=== PATIENT | female | born 2000 | race Caucasian/White ===

== ENCOUNTER 2022-09-17 12:51 | Outpatient (CLI) | payer BC, OTHER ==
[2022-09-17 15:58] VITALS: BP 120/67; PULSE 94; RESP 16; TEMP 98.2
--- NOTE | 2022-11-05 07:29 | P.MSEPDOC ---
Presenting Problems - Arrival Data Date of Arrival on Unit: 09/17/22 Time of Arrival on Unit: 12:51 Mode of Transport: Ambulatory - Complaint OB-Reason for Admission/Chief Complaint: Other Comment: sent from office for monitoring, had TRACY 4.1 in office Medical History - Information : 2 Para: 0 Term: 0 : 0 Abortions: Spontaneous or Elective: 0 Number of Living Children: 0 - Gestational Age Gestational Age by FERN (wks/days): 40 Weeks and 4 Days Review of Systems - Review of Systems Constitutional: No problems Breast: No problems ENT: No problems Cardiovascular: No problems Respiratory: No problems Gastrointestinal: No problems Genitourinary: No problems Musculoskeletal: No problems Neurological: No problems Skin: No problems Vital Signs - Temperature Temperature: 98.2 F Temperature Source: Temporal Artery Scan - Pulse Right Sitting Pulse Rate: 94 Pulse Assessment Method: Automatic Cuff - Respirations Respiratory Rate: 16 Oxygen Delivery Method: Room Air - Blood Pressure Right Arm Blood Pressure: 120/67 Blood Pressure Mean: 84 Blood Pressure Source: Automatic Cuff Medical Screen Scoring - Cervical Exam Membranes: Intact - Assessment - Baby A Baseline FHR: 150 Heart Rate - NICHD Category: Category I (Normal) NST: Reactive Physician Notification - Physician Notified Physician Notified Date: 09/17/22 Physician Notified Time: 14:45 Physician: Quin Walker Order Received: Yes (d/c home) Maternal Triage Index - Non-Urgent/Priority 4 Non-Urgent Priority 4: Yes Criteria Met for Priority 4: reactive nst, negative amnisure Disposition - Disposition OB Disposition: Discharge to home, Written follow up instructions reviewed Discharge Date: 09/17/22 Discharge Time: 15:00 I agree with the RN Medical Screening Exam: Yes Case reviewed; plan agreed upon as documented in EMR&OBIX.: Yes Diagnosis: OLIGOHYDRAMNIOS, THIRD TRIMESTER, FETUS 1
== END 2022-09-17 15:00 | disposition home or self-care (01) ==
LOC: FBPOP 12:51
PROVIDERS: ATTEND Obstetrics & Gynecology
DX: O26.893 Other specified pregnancy related conditions, third trimester (principal); O41.03X1 Oligohydramnios, third trimester, fetus 1; Z3A.40 40 weeks gestation of pregnancy
CPT/HCPCS: 59025; 84112; G0463; 99213

== ENCOUNTER 2022-09-19 11:22 | Inpatient (IN) | payer BC, OTHER ==
[2022-09-19] MEDS ORDERED: miSOPROStoL 200 MCG TAB PO PRN (12:30)
[2022-09-19] MEDS ORDERED: OXYTOCIN 10 UNIT/ML 1 ML VIAL IM PRN (12:30)
[2022-09-19] MEDS ORDERED: TRANEXAMIC 1,000 MG/100ML-NACL 1,000 MG in EMPTY BAG 1 BAG IV PRN (12:30)
[2022-09-19] MEDS ORDERED: METHYLERGONOVINE 0.2 MG/ML 1 ML AMP IM PRN (12:30)
[2022-09-19] MEDS ORDERED: CITRIC ACID-SODIUM CITRATE 15 ML CUP PO ONE (12:30)
[2022-09-19] MEDS ORDERED: OXYTOCIN 30 UNITS/500 ML NS 30 UNIT in SALINE 1 500ML.BAG IV SCH (12:30)
[2022-09-19] MEDS ORDERED: CARBOPROST TROMETHAMINE 250 MCG/ML 1 ML AMP IM PRN (12:30)
--- NOTE | 2022-09-19 12:42 | US ---
EXAMINATION TYPE: US OB limited DATE OF EXAM: 09/19/2022 COMPARISON: NONE CLINICAL INDICATION: Female, 22 years old with history of TRACY; EXAM PERFORMED: Transabdominal (TA) GESTATIONAL AGE / DATING Physician Established: (40 weeks/6 days) EDC: 09/13/2022 No growth performed on today?s study per ordering physician SURVEY TRACY: 2.3 cm Oligohydraminos PRESENTATION: Vertex HEART RATE: 140 bpm RHYTHM: Normal Verbal results given to floor nurse at time of exam. IMPRESSION: Oligohydramnios.
[2022-09-19] MEDS: LACTATED RINGERS 1,000 ML IV SCH (13:00)
[2022-09-19 13:14] LABS: Basophils % (A) 0 %; Eosinophils # (A) 0.1 k/uL (0-0.7); Eosinophils % (A) 1 %; HCT 33.4 % (34.0-46.0); HGB 12.1 gm/dL (11.4-16.0); Lymphocytes # (A) 0.9 k/uL (1.0-4.8); Lymphocytes % (A) 13 %; MCH 32.7 pg (25.0-35.0); MCHC 36.3 g/dL (31.0-37.0); Mean Platelet Volume 10.5; Monocytes # (A) 0.4 k/uL (0-1.0); Monocytes % (A) 6 %; Neutrophils # (A) 5.4 k/uL (1.3-7.7); Neutrophils % (A) 78 %; Platelet Count 130 k/uL (150-450); RBC 3.71 m/uL (3.80-5.40); RDW 13.2 % (11.5-15.5); WBC 6.9 k/uL (3.8-10.6)
--- NOTE | 2022-09-19 15:59 | P.HPOB ---
History of Present Illness H&P Date: 09/19/22 Chief Complaint: oligohydraminos 22 year old presemts at 40 weeks 6 days with oligohydramnios. TRACY today is 2.2cm though heart tones are category 1. Her cervix is closed and uneffaced. Review of Systems All systems: negative Constitutional: Denies chills, Denies fever Eyes: denies blurred vision, denies pain Ears, nose, mouth and throat: Denies headache, Denies sore throat Cardiovascular: Denies chest pain, Denies shortness of breath Respiratory: Denies cough Gastrointestinal: Denies abdominal pain, Denies diarrhea, Denies nausea, Denies vomiting Genitourinary: Denies dysuria, Denies hematuria Musculoskeletal: Denies myalgias Integumentary: Denies pruritus, Denies rash Neurological: Denies numbness, Denies weakness Psychiatric: Denies anxiety, Denies depression Endocrine: Denies fatigue, Denies weight change Past Medical History Past Medical History: No Reported History History of Any Multi-Drug Resistant Organisms: None Reported Additional Past Surgical History / Comment(s): Eye surgery x2 in childhood Past Anesthesia/Blood Transfusion Reactions: No Reported Reaction Past Psychological History: No Psychological Hx Reported Smoking Status: Never smoker Past Alcohol Use History: None Reported Past Drug Use History: None Reported - Past Family History Mother Family Medical History: No Reported History Medications and Allergies Home Medications Medication Instructions Recorded Confirmed Type Vit No.179/Iron/Folic 1 tab PO DAILY 09/17/22 09/19/22 History [ Tablet] Allergies Allergy/AdvReac Type Severity Reaction Status Date / Time No Known Allergies Allergy Verified 09/17/22 13:34 Exam Osteopathic Statement: *. No significant issues noted on an osteopathic structural exam other than those noted in the History and Physical/Consult. Vital Signs Temp Pulse Resp BP Pulse Ox 09/19/22 11:38 97.9 F 104 H 18 114/61 98 Intake and Output 09/19/22 09/19/22 09/19/22 06:59 14:59 22:59 Other: # Voids 1 Weight 100.244 kg Heart: Regular rate and rhythm Lungs: Clear to auscultation bilaterally Abdomen: Soft, nontender Extremities: Negative Homans sign Results Result Diagrams: 09/19/22 12:57 Abnormal Lab Results - Last 24 Hours (Table) 09/19/22 Range/Units 12:57 RBC 3.71 L (3.80-5.40) m/uL Hct 33.4 L (34.0-46.0) % Plt Count 130 L (150-450) k/uL Lymphocytes # 0.9 L (1.0-4.8) k/uL Assessment and Plan (1) Oligohydramnios antepartum Current Visit: Yes Status: Acute Code(s): O41.00X0 - OLIGOHYDRAMNIOS, UNSP TRIMESTER, NOT APPLICABLE OR UNSP SNOMED Code(s): 115642995 (2) Postmaturity , 40-42 weeks gestation Current Visit: Yes Status: Acute Code(s): O48.0 - POST-TERM SNOMED Code(s): 05449905398288 (3) Macrosomia Current Visit: Yes Status: Acute Code(s): P08.0 - EXCEPTIONALLY LARGE BABY SNOMED Code(s): 74533113 Plan: 1. primary low transverse
[2022-09-19] MEDS ORDERED: DEXAMETHASONE SOD PHOSPHATE 4 MG/ML 1 ML VIAL ONE (16:29)
[2022-09-19] MEDS ORDERED: MORPHINE SULFATE (PF) 0.3 MG/0.3 ML SYR ONE (16:29)
[2022-09-19] MEDS ORDERED: KETOROLAC 15 MG/ML 1 ML VIAL ONE (16:29)
[2022-09-19] MEDS ORDERED: ONDANSETRON 4 MG/2 ML VIAL ONE (16:29)
[2022-09-19] MEDS ORDERED: diphenhydrAMINE 50 MG/ML 1 ML VIAL IVP PRN ×3 (17:15→20:05)
[2022-09-19] MEDS ORDERED: HYDROmorphone 0.5 MG/0.5 ML SYRINGE IVP PRN (17:15)
[2022-09-19] MEDS ORDERED: ONDANSETRON 4 MG/2 ML VIAL IVP PRN ×2 (17:15→20:05)
[2022-09-19] MEDS ORDERED: NALOXONE 0.4 MG/ML 1 ML VIAL IV PRN ×2 (17:15→20:05)
[2022-09-19] MEDS ORDERED: ZOLPIDEM 5 MG TAB PO PRN (20:05)
[2022-09-19] MEDS ORDERED: diphenhydrAMINE 25 MG CAP PO PRN (20:05)
[2022-09-19] MEDS ORDERED: METOCLOPRAMIDE 5 MG/ML 2 ML VIAL IVP PRN (20:05)
[2022-09-19] MEDS ORDERED: diphenhydrAMINE 50 MG CAP PO PRN (20:05)
[2022-09-19] MEDS: ACETAMINOPHEN TAB 500 MG TAB PO SCH (20:53)
[2022-09-19] MEDS: KETOROLAC 15 MG/ML 1 ML VIAL IVP PRN (23:39)
[2022-09-20] MEDS: LACTATED RINGERS 1,000 ML IV SCH ×6 (00:01→20:01)
[2022-09-20] MEDS: IBUPROFEN 600 MG TAB PO SCH ×4 (00:03→23:41)
[2022-09-20] MEDS: ACETAMINOPHEN TAB 500 MG TAB PO SCH ×4 (05:37→20:57)
[2022-09-20 07:06] LABS: Basophils % (A) 0 %; Eosinophils % (A) 0 %; HGB 10.1 gm/dL (11.4-16.0); Lymphocytes # (A) 1.1 k/uL (1.0-4.8); Lymphocytes % (A) 10 %; MCH 32.1 pg (25.0-35.0); MCHC 34.9 g/dL (31.0-37.0); MCV 91.9 fL (80.0-100.0); Mean Platelet Volume 10.8; Monocytes # (A) 0.7 k/uL (0-1.0); Monocytes % (A) 6 %; Neutrophils # (A) 9.1 k/uL (1.3-7.7); Neutrophils % (A) 83 %; Platelet Count 133 k/uL (150-450); RBC 3.15 m/uL (3.80-5.40); RDW 13.4 % (11.5-15.5)
[2022-09-20] MEDS: KETOROLAC 15 MG/ML 1 ML VIAL IVP PRN (07:59)
[2022-09-20] MEDS: SENNOSIDES-DOCUSATE SODIUM 1 EACH TAB PO SCH ×2 (08:00→20:01)
--- NOTE | 2022-09-20 09:56 | P.PN ---
Progress Note - Text Progress Note Date: 09/20/22 Postoperative day 1 status post section under spinal anesthesia, and i ntrathecal morphine given for postoperative analgesia, patient doing well, there is no anesthesia related complications, Patient had no headache, vital signs stable , Assessment and plan= postop day 1 status post , doing well there is no anesthesia related complication.
--- NOTE | 2022-09-20 12:46 | P.PNOBGPC ---
Subjective - Subjective Principal diagnosis: Status post primary section postoperative day #1 Interval history: Patient is doing well. She has ambulated. She is passing some flatus but no bowel movement yet. Her catheter was removed earlier today and she has not been able to urinate yet. She has had a straight cathed 1 time. Bleeding has been minimal. She is breast-feeding well. Patient reports: Reports appetite normal, Reports pain well controlled, Reports ambulating normally, Denies voiding normally [place]: doing well, nursing well Objective - Vital Signs Latest vital signs: Vital Signs Temp Pulse Resp BP Pulse Ox 09/20/22 08:00 98.1 F 78 15 106/64 98 09/20/22 04:00 99.2 F 85 16 105/62 96 09/19/22 23:56 98.6 F 89 16 123/67 96 09/19/22 19:31 76 16 119/74 97 09/19/22 18:40 96.9 F L 62 18 111/59 99 09/19/22 18:15 98.3 F 70 18 121/61 98 09/19/22 18:10 98.3 F 70 18 121/61 98 09/19/22 17:55 68 18 122/60 99 09/19/22 17:40 96.4 F L 71 18 116/55 99 09/19/22 17:25 98.2 F 67 18 130/58 100 09/19/22 17:10 97.0 F L 80 18 112/68 100 Intake and Output 09/19/22 09/20/22 09/20/22 22:59 06:59 14:59 Output Total 1012 2000 1100 Balance -1012 -1999 -1100 Output: Urine 150 2000 1100 Straight 1100 Uretheral (Ferrara) 1200 Output, Quantitative 862 Blood Loss - Exam Extremities: Present: normal. Absent: tenderness, edema Abdomen: Present: normal appearance, soft (Positive bowel sounds 4). Absent: distention, tenderness Incision: Present: normal, dry, intact. Absent: erythematous Uterus: Present: normal, firm. Absent: tenderness - Labs Labs: Abnormal Lab Results - Last 24 Hours (Table) 09/19/22 09/20/22 Range/Units 12:57 06:18 WBC 11.0 H (3.8-10.6) k/uL RBC 3.71 L 3.15 L (3.80-5.40) m/uL Hgb 10.1 L (11.4-16.0) gm/dL Hct 33.4 L 29.0 L (34.0-46.0) % Plt Count 130 L 133 L (150-450) k/uL Neutrophils # 9.1 H (1.3-7.7) k/uL Lymphocytes # 0.9 L (1.0-4.8) k/uL Assessment and Plan Assessment: Status post primary low transverse section postoperative day #1 Plan: Continue with postoperative and care today. We'll continue to observe for urination and straight cath as needed. Will switch to oral pain medications today. Encouraged ambulation.
[2022-09-20 23:44] VITALS: PULSE 78; TEMP 98.2
[2022-09-21] MEDS: IBUPROFEN 600 MG TAB PO SCH ×3 (02:07→12:24)
[2022-09-21] MEDS: ACETAMINOPHEN TAB 500 MG TAB PO SCH ×2 (04:08→10:26)
[2022-09-21] MEDS: SENNOSIDES-DOCUSATE SODIUM 1 EACH TAB PO SCH (08:46)
[2022-09-21 09:17] VITALS: BP 113/74; RESP 18
--- NOTE | 2022-09-21 12:48 | P.DS ---
Providers Date of admission: 09/19/22 12:21 Expected date of discharge: 09/21/22 Attending physician: Quin Walker Primary care physician: Stated None Hospital Course: This is a 22-year-old female that a 2 para 0 at 40-6/7 weeks who presented for primary section due to macrosomia, postdates, and oligohydramnios. She underwent a primary low transverse section on 09/19/2022 and delivered a viable male with scores of 8 at 1 minute and 9 at 5 minutes and weight of 9 lbs. 8 oz. Her postoperative and course has been uncomplicated. She is passing flatus and bowel movement. She is urinating without difficulty. Pain is been fairly well- controlled. Baby is breast-feeding. Vital signs are stable. Abdomen is soft with positive bowel sounds 4. Incision is clean dry and intact with balbir in place. Extremities show negative Homans. Impression is status post primary low transverse section postoperative day #2. Plan is to discharge home today. Routine postoperative and instructions are given. She is advised to follow up with Dr. Walker in 1 week in the office for a postoperative check and in 6 weeks for a check. She will be given a prescription for ibuprofen. She is advised to call the office if she has any further questions or concerns prior to her appointment times. Procedures: Primary low transverse section on 09/19/2022 with delivery of a viable male Patient Condition at Discharge: Stable Plan - Discharge Summary New Discharge Prescriptions: New Ibuprofen [Motrin] 600 mg PO Q6H #60 tab Acetaminophen Tab [Tylenol] 1,000 mg PO Q6H tab Continue Vit No.179/Iron/Folic [ Tablet] 1 tab PO DAILY Discharge Medication List Vit No.179/Iron/Folic [ Tablet] 1 tab PO DAILY 09/17/22 [History] Acetaminophen Tab [Tylenol] 1,000 mg PO Q6H tab 09/21/22 [Rx] Ibuprofen [Motrin] 600 mg PO Q6H #60 tab 09/21/22 [Rx] Follow up Appointment(s)/Referral(s): Quin Walker DO [Doctor of Osteopathic Medicine] - 1 Week Activity/Diet/Wound Care/Special Instructions: Instructions 1. Do not begin any exercise program for 3 weeks. 2. Do not resume sexual relations for 3 weeks or longer if uncomfortable. 3. You may take tub baths or showers at any time. 4. You may use tampons if desired after 3 weeks. 5. Keep the area of episiotomy (stitches) clean and dry. 6. If you are not nursing, wear a good fitting, supportive bra during the day and limit fluid intake for at least 1 week to prevent breast engorgement. 7. Call the office, [phone], within the next week to make appointment for your 6 week checkup if it has not already been made. 8. Report any of the following occurrences to the doctor promptly: a. Heavy, excessive bleeding b. Chills, fever c. Burning or frequency of urination d. Pain or redness and breasts if nursing e. Increasing pain or swelling in episiotomy (stitches). In addition to the above instructions, the following additional should be followed: 1. No heavy lifting or straining (exercising) until after 6 week checkup. 2. Keep abdominal incision clean and dry: You may wear a dressing if more comfortable. 3. Make office appointment for 10 days after going home or as instructed by her doctor. Discharge Disposition: HOME SELF-CARE
--- NOTE | 2022-10-05 09:11 | P.OP ---
Date of Procedure: 09/19/22 Preoperative Diagnosis: 1. at 40 weeks 6 days 2. oligohydramnios 3. macrosomia Postoperative Diagnosis: same Procedure(s) Performed: Primary low transverse Anesthesia: spinal Surgeon: Quin Walker Estimated Blood Loss (ml): 300 IV fluids (ml): 600 Urine output (ml): 100 Pathology: none sent Condition: stable Disposition: floor Description of Procedure: Patient was taken to the operating room where spinal anesthesia was found be adequate. She was prepped and draped in normal sterile fashion in dorsal supine position with a leftward tilt. Pfannenstiel skin incision was made the scalpel and carried through to the underlying layer of fascia with the scalpel. Fascia was incised in midline and carried bilaterally with the Ewing scissors. The superior aspect of the fascial incision was grasped with Fortunato clamps elevated and the underlying rectus muscles dissected off with the Ewing's. Attention was then turned to inferior aspect of same incision which in a similar fashion was grasped tented up and the underlying rectus muscles dissected off with the Ewing's. The rectus muscles were the midline and the peritoneum was identified tented up and entered sharply with the scalpel. The incision was extended superiorly and inferiorly with good visualization of the bladder. The bladder blade was inserted and the vesicouterine peritoneum was incised the Metzenbaums then carried bilaterally and bladder flap created digitally. A low transverse incision was then made on the uterus with the scalpel. This was carried bilaterally and digital manner. 's head delivered atraumatically, nose and mouth bulb suctioned, cord clamped and cut, handed off to waiting nurses. Apgars 9,9, weight pending. Placenta delivered manually, intact with three-vessel cord. The uterus is exteriorized and cleared of all clots and debris. The uterine incision was closed with 0 Vicryl in a running locked fashion. Second layer of the same sutures used in imbricating fashion to obtain excellent hemostasis. Bladder flap was then reapproximated using 2-0 Vicryl in a running fashion. Both ovaries and tubes appeared normal. The uterus was placed back into the abdomen. The peritoneum was reapproximated using 2-0 Vicryl in a running fashion. The muscles were reapproximated using 2- 0 Vicryl in interrupted fashion. The fascia was reapproximated using 0 Vicryl in a running fashion. The subcutaneous tissues closed with 3-0 Vicryl running fashion. The skin was closed balbir. Patient tolerated the procedure well, sponge and instrument counts were correct times 2 and she was taken to the recovery room in stable condition.
== END 2022-09-21 13:21 | disposition home or self-care (01) | DRG 787 ==
LOC: FBPOP 11:22 → 4FBP 12:21
PROVIDERS: ADMIT Obstetrics & Gynecology; ATTEND Obstetrics & Gynecology
PROC: 10D00Z1 Extraction of Products of Conception, Low, Open Approach (ICD-10-PCS; principal; 2022-09-19 17:00)
DX: O48.0 Post-term pregnancy (principal); O41.03X0 Oligohydramnios, third trimester, not applicable or unspecified; O36.63X0 Maternal care for excessive fetal growth, third trimester, not applicable or unspecified; Z3A.40 40 weeks gestation of pregnancy; Z37.0 Single live birth
CPT/HCPCS: 59025; 76815; 85025; 86850; 86900; 86901; 99213

== ENCOUNTER 2024-09-16 12:38 | Outpatient (CLI) | payer OTHER ==
[2024-09-16 16:06] VITALS: BP 113/58; PULSE 76; RESP 18; TEMP 99.1
--- NOTE | 2024-09-18 09:34 | P.MSEPDOC ---
Presenting Problems - Arrival Data Date of Arrival on Unit: 09/16/24 Time of Arrival on Unit: 12:39 Mode of Transport: Ambulatory - Complaint OB-Reason for Admission/Chief Complaint: Possible Onset of Labor Comment: Pt complains of contractions that started today. States that she is scheduled for a C/S next week. Medical History - Information : 2 Para: 1 Number of Living Children: 1 - Gestational Age Gestational Age by FERN (wks/days): 38 Weeks and 3 Days - History Complications: Prior Review of Systems - Review of Systems Constitutional: No problems Breast: No problems ENT: No problems Cardiovascular: No problems Respiratory: No problems Gastrointestinal: No problems Genitourinary: No problems Musculoskeletal: No problems Neurological: No problems Skin: No problems Vital Signs - Temperature Temperature: 99.1 F Temperature Source: Temporal Artery Scan - Pulse Right Sitting Brachial Pulse Rate: 76 Pulse Assessment Method: Pulse Oximetry - Respirations Respiratory Rate: 18 Oxygen Delivery Method: Room Air O2 Sat by Pulse Oximetry: 98 - Blood Pressure Right Arm Sitting Blood Pressure: 113/58 Blood Pressure Mean: 76 Blood Pressure Source: Automatic Cuff Medical Screen Scoring - Cervical Exam Dilation (cm): 0 - Assessment - Baby A Baseline FHR: 140 Heart Rate - NICHD Category: Category I (Normal) NST: Reactive Physician Notification - Physician Notified Physician Notified Date: 09/16/24 Physician Notified Time: 13:00 Physician: Satnam Johnston Order Received: Yes - Notification Comment Comment: Pt to receive IV fluids and may be d/c home to follow up for c/s Maternal Triage Index - Prompt/Priority 3 Prompt Priority 3: Yes Criteria Met for Priority 3: Contractions Disposition - Disposition OB Disposition: Discharge to home, Written follow up instructions reviewed Discharge Date: 09/16/24 Discharge Time: 15:55 I agree with the RN Medical Screening Exam: Yes Physician's MSE Comment: I have neither seen nor examined the patient. Case reviewed; plan agreed upon as documented in EMR&OBIX.: Yes Diagnosis: RELATED CONDITIONS, UNSPECIFIED, THIRD TRIMESTER
== END 2024-09-16 15:55 | disposition home or self-care (01) ==
LOC: FBPOP 12:38
PROVIDERS: ATTEND Obstetrics & Gynecology
DX: O26.893 Other specified pregnancy related conditions, third trimester (principal); Z3A.38 38 weeks gestation of pregnancy
CPT/HCPCS: 59025; 96360; G0463; 99214

== ENCOUNTER 2024-09-21 09:27 | Inpatient (IN) | payer OTHER ==
[2024-09-21] MEDS ORDERED: METHYLERGONOVINE 0.2 MG/ML 1 ML AMP IM PRN (10:19)
[2024-09-21] MEDS ORDERED: TRANEXAMIC 1,000 MG/100ML-NACL 1,000 MG in EMPTY BAG 1 BAG IV PRN (10:19)
[2024-09-21] MEDS ORDERED: OXYTOCIN 10 UNIT/ML 1 ML VIAL IM PRN (10:19)
[2024-09-21] MEDS ORDERED: CARBOPROST TROMETHAMINE 250 MCG/ML 1 ML AMP IM PRN (10:19)
[2024-09-21] MEDS ORDERED: OXYTOCIN 30 UNITS/500 ML NS 30 UNIT in SALINE 1 500ML.BAG IV SCH (10:30)
[2024-09-21] MEDS: LACTATED RINGERS 1,000 ML IV SCH ×2 (10:30→13:30)
[2024-09-21 11:20] LABS: Basophils # (A) 0.01 10*3/uL (0.00-0.10); Basophils % (A) 0.2 %; Eosinophils # (A) 0.04 10*3/uL (0.04-0.35); Eosinophils % (A) 0.6 %; HCT 32.5 % (37.2-46.3); HGB 11.0 g/dL (12.0-15.0); Immature Platelet Fraction 8.1 % (1.1-6.1); Lymphocytes # (A) 1.13 10*3/uL (0.90-5.00); Lymphocytes % (A) 17.1 %; MCH 30.2 pg (27.0-32.0); MCHC 33.8 g/dL (32.0-37.0); MCV 89.3 fL (80.0-97.0); Monocytes # (A) 0.46 10*3/uL (0.20-1.00); Monocytes % (A) 7.0 %; Neutrophils # (A) 4.91 10*3/uL (1.80-7.70); Neutrophils % (A) 74.3 %; Platelet Count 143 10*3/uL (140-440); RBC 3.64 10*6/uL (4.10-5.20); RDW 13.2 % (11.5-14.5); WBC 6.60 10*3/uL (4.50-10.00)
[2024-09-21] MEDS: CITRIC ACID-SODIUM CITRATE 15 ML CUP PO ONE (12:00)
[2024-09-21] MEDS ORDERED: KETOROLAC 15 MG/ML 1 ML VIAL ONE (12:14)
[2024-09-21] MEDS ORDERED: MORPHINE SULFATE (PF) 0.3 MG/0.3 ML SYR ONE (12:14)
[2024-09-21] MEDS ORDERED: NALBUPHINE (ANES) 10 MG/ML - 1 ML AMP ONE (12:14)
[2024-09-21] MEDS ORDERED: fentaNYL (PF) 50 MCG/ML 2 ML AMP ONE (12:14)
[2024-09-21] MEDS ORDERED: OXYTOCIN 30 UNITS/500 ML NS BAG IV ONE (12:14)
[2024-09-21] MEDS ORDERED: ONDANSETRON 4 MG/2 ML VIAL ONE (12:14)
[2024-09-21] MEDS ORDERED: DEXAMETHASONE SOD PHOSPHATE 4 MG/ML 1 ML VIAL ONE (12:14)
[2024-09-21] MEDS ORDERED: NALOXONE 0.4 MG/ML 1 ML VIAL IV PRN (13:23)
[2024-09-21] MEDS ORDERED: SIMETHICONE 80 MG CHEWABLE PO PRN (13:23)
[2024-09-21] MEDS ORDERED: ONDANSETRON 4 MG/2 ML VIAL IVP PRN (13:23)
[2024-09-21] MEDS ORDERED: ZOLPIDEM 5 MG TAB PO PRN (13:23)
[2024-09-21] MEDS ORDERED: diphenhydrAMINE 50 MG/ML 1 ML VIAL IVP PRN ×2 (13:23)
[2024-09-21] MEDS ORDERED: LANOLIN CREAM 1 GM TUBE TOPICAL PRN (13:23)
[2024-09-21] MEDS ORDERED: METOCLOPRAMIDE 5 MG/ML 2 ML VIAL IVP PRN (13:23)
[2024-09-21] MEDS ORDERED: diphenhydrAMINE 25 MG CAP PO PRN (13:23)
--- NOTE | 2024-09-21 13:30 | P.HPOB ---
History of Present Illness H&P Date: 09/21/24 Chief Complaint: 39+ weeks, previous section, undesired fertility, ovarian mass The patient is a 24-year-old 3 para 1-0-1-1 admitted at 39 and 1 sevenths weeks as established by 10-week ultrasound. She is admitted for repeat low-transverse section with intraoperative bilateral salpingectomy. On labor delivery, all signs are reassuring with a category 1 heart rate tracing. She additionally carries a history of a known right ovarian mass which was approximately 5 cm in her last and has grown during this to approximately 15 cm in size. The intention is to excise it during this procedure. Her was otherwise essentially uncomplicated though she had an episode of dysrhythmia for which she had a maternal- medicine consultation which was reassuring and required no further intervention. Group B strep status is negative. Obstetrical history: 3 para 1-0-1-1 with 1 previous term section without complications. Current statistics are listed in the history of present illness. EDC of 09/27/2024 was established by 10-week ultrasound. Laboratory workup demonstrates a blood type of A+ with a negative antibody screen. Rubella status is immune. The remainder of the laboratory workup is within normal limits. 1 hour Glucola was normal and group B strep status is negative. Gynecologic history: Unremarkable with no history of any infections to include STDs. Review of Systems Review of systems is confined to history of present illness. Past Medical History Past Medical History: No Reported History History of Any Multi-Drug Resistant Organisms: None Reported Past Surgical History: Section Additional Past Surgical History / Comment(s): Eye surgery x2 in childhood Past Anesthesia/Blood Transfusion Reactions: No Reported Reaction Past Psychological History: No Psychological Hx Reported Smoking Status: Never smoker Past Alcohol Use History: None Reported Past Drug Use History: None Reported - Past Family History Mother Family Medical History: No Reported History Medications and Allergies Home Medications Medication Instructions Recorded Confirmed Type Vit No.179/Iron/Folic 1 tab PO DAILY 09/17/22 09/21/24 History [ Tablet] Allergies Allergy/AdvReac Type Severity Reaction Status Date / Time No Known Allergies Allergy Verified 09/21/24 10:18 Exam Vital Signs Temp Pulse Resp BP Pulse Ox 09/21/24 10:18 97.5 F L 70 16 110/67 99 Intake and Output 09/20/24 09/21/24 09/21/24 22:59 06:59 14:59 Other: Weight 99.79 kg In general, this is a well-developed well-nourished white female in no acute distress. Her heart has a regular rhythm and rate without murmur. Her lungs are clear to auscultation bilaterally no clemente. Her abdomen is gravid, nondistended, has normal active bowel sounds, soft, nontender, and without any palpable masses aside from uterine fundus. Her extremities are without any cyanosis, clubbing, or edema and are nontender to palpation bilaterally. Pelvic examination is deferred. Results Result Diagrams: 09/21/24 10:30 Abnormal Lab Results - Last 24 Hours (Table) 09/21/24 Range/Units 10:30 RBC 3.64 L (4.10-5.20) 10*6/uL Hgb 11.0 L (12.0-15.0) g/dL Hct 32.5 L (37.2-46.3) % Immature Gran # 0.05 H (0.00-0.04) 10*3/uL Immature Plt Fraction 8.1 H (1.1-6.1) % Assessment and Plan (1) Mass of right ovary Current Visit: Yes Status: Acute Code(s): N83.8 - OTH NONINFLAMMATORY DISORD OF OVARY, FALLOP AND BROAD LIGMT SNOMED Code(s): 00613803522612084 (2) Family planning Current Visit: Yes Status: Acute Code(s): Z30.09 - ENCOUNTER FOR OT GENERAL CNSL AND ADVICE ON CONTRACEPTION SNOMED Code(s): 215966234 (3) Previous section Current Visit: Yes Status: Acute Code(s): Z98.891 - HISTORY OF UTERINE SCAR FROM PREVIOUS SURGERY SNOMED Code(s): 466261737 (4) Term Current Visit: Yes Status: Acute Code(s): Z34.90 - ENCNTR FOR SUPRVSN OF NORMAL , UNSP, UNSP TRIMESTER SNOMED Code(s): 58298273 Plan: We will proceed with repeat low-transverse section with intraoperative bilateral salpingectomy and probable right oophorectomy for management of the very large ovarian mass thought to be likely a serous cystadenoma. The risks and complications of these procedures have been thoroughly discussed, especially the risk for bleeding with potentially removing of the right ovary. She has understood and agreed to proceed.
--- NOTE | 2024-09-21 13:38 | P.OP ---
Date of Procedure: 09/21/24 Preoperative Diagnosis: #1. 39 and 1 sevenths weeks, previous section #2. Undesired fertility #3. Right ovarian mass Postoperative Diagnosis: Same Procedure(s) Performed: #1. Repeat low-transverse section #2. Intraoperative bilateral salpingectomy #3. Right oophorectomy Anesthesia: spinal Surgeon: Satnam Johnston Casing In Line Setter #1: Chio Gomes Estimated Blood Loss (ml): 390 IV fluids (ml): 1,100 Urine output (ml): 150 Pathology: other (Bilateral fallopian tubes, right ovary) Condition: stable Disposition: floor Operative Findings: Operatively, the patient was delivered by repeat low-transverse section of a viable 8 pound 15 ounce baby girl with Apgars of 9 at 1 minute and 10 at 5 minutes in the occiput anterior position. The placenta was delivered manually, intact, grossly normal with a grossly normal three-vessel cord. The uterus, tubes and left ovary were normal to inspection. The right ovary was significantly enlarged but otherwise soft and appears benign looking consistent with a possible serous cystadenoma approximately 15 to 18 cm in largest dimension. The bilateral fallopian tubes were removed from the fimbriated end to the insertion in the cornu bilaterally and sent in a single specimen cup. The right ovary was removed and sent in a separate specimen container. Description of Procedure: The patient was prepped and draped in usual fashion after spinal anesthesia was administered by the anesthesiologist. A Pfannenstiel incision was made through her pre-existing scar and extended into the abdominal cavity without difficulty. The bladder peritoneum was significantly distal to the intended site of incision and was left intact. A 2 cm incision was made the transverse plane of the lower uterine segment to enter the uterus at which time clear fluid was noted. The incision was extended to both directions using the bandage scissors. The head was encountered in the field and delivered up and through the incision where the nose and mouth were thoroughly suctioned. The remainder of the infant was delivered onto the field where the cord was doubly clamped, cut, and the infant passed resuscitative measures with weight and Apgars as noted above. The cord was then shortened and the placenta delivered manually and intact as noted above. The uterus was exteriorized and the anterior cavity the uterus swept of intervening placental or membranous fragments. The right ovary was noted to be significantly enlarged and in the upper abdomen and was delivered through the incision onto the abdomen as well. The left ovary was entirely normal to inspection. The margins of the uterine incision were grasped with Armstrong clamps and the incision was closed with a single running locking stitch of 0 chromic catgut proceeding from margin to margin. Hemostasis appeared excellent. After reaffirming the patient's desire for tubal sterilization, the left fallopian tube was elevated with a Armstrong clamp and removed from its underlying structures using a LigaSure device and the tube removed completely at its insertion into the uterus. A similar operation was carried out on the right side without difficulty. Deja clamps were then placed across the ovarian pedicle and firmly set. A stitch of 0 Vicryl was placed through the pedicle beneath the Deja clamps and the entire pedicle encircled with the stitch which was then firmly tied down flashing the Deja's above. A second free tie of 0 Vicryl was then placed just above the level of the Deja's and then he is removed entirely. A second set of Deja's had been placed above that level on the ovarian side and a LigaSure device was utilized to thoroughly cauterized the entire pedicle in several layers above the level of the free tie and then it was cut to free the ovary which was sent for pathological diagnoses. Hemostasis was excellent. After inspecting all of the areas of surgery and making any small points of bleeding hemostatic with the Bovie, the uterus was replaced within the abdominal cavity and the gutters swept of any remaining blood, fluid, or clot. The cul-de-sac had been previously suctioned with a guard followed by laparotomy sponge. The uterine incision was reexamined and found to be hemostatic. The parietal peritoneum was loosely reapproximated and the layer of muscles examined and found to be hemostatic. The fascia was closed with a single running stitch of 0 Vicryl proceeding from margin to margin. The subcutaneous tissues were irrigated, made hemostatic with the Bovie, and reapproximated with a running stitch of 3-0 plain catgut. The skin was reapproximated with a running subcuticular stitch of 4-0 Vicryl followed by half-inch Steri-Strips placed with Mastisol. Quantitative blood loss for the case was 390 mL. There were no complications. All sponge, instrument, and needle counts were correct. The patient tolerated the procedure well and proceeded to the recovery room in stable condition. Both mother and infant are resting comfortably in recovery.
[2024-09-21] MEDS: ACETAMINOPHEN TAB 500 MG TAB PO SCH (16:05)
[2024-09-21] MEDS: KETOROLAC 15 MG/ML 1 ML VIAL IVP PRN (20:25)
[2024-09-21] MEDS: SENNOSIDES-DOCUSATE SODIUM 1 EACH TAB PO SCH (21:40)
[2024-09-22 06:18] LABS: Basophils # (A) 0.01 10*3/uL (0.00-0.10); Basophils % (A) 0.1 %; Eosinophils # (A) 0.02 10*3/uL (0.04-0.35); Eosinophils % (A) 0.2 %; HCT 30.7 % (37.2-46.3); HGB 10.4 g/dL (12.0-15.0); Lymphocytes # (A) 1.83 10*3/uL (0.90-5.00); Lymphocytes % (A) 15.8 %; MCH 30.7 pg (27.0-32.0); MCHC 33.9 g/dL (32.0-37.0); MCV 90.6 fL (80.0-97.0); Monocytes # (A) 0.91 10*3/uL (0.20-1.00); Monocytes % (A) 7.8 %; Neutrophils # (A) 8.80 10*3/uL (1.80-7.70); Neutrophils % (A) 75.8 %; Platelet Count 141 10*3/uL (140-440); RBC 3.39 10*6/uL (4.10-5.20); RDW 13.3 % (11.5-14.5); WBC 11.60 10*3/uL (4.50-10.00)
--- NOTE | 2024-09-22 07:20 | P.PN ---
Progress Note - Text 09/22/24 6 656am 24-year-old female status post with spinal Duramorph .patient seen and and evaluated for postop pain control, he has a VAS of 0 with no complaints of nausea vomiting or pruritus
--- NOTE | 2024-09-22 08:58 | P.PNOBGPC ---
Subjective - Subjective Patient reports: Reports appetite normal, Reports voiding normally, Reports pain well controlled, Reports ambulating normally : doing well, nursing well Objective - Vital Signs Latest vital signs: Vital Signs Temp Pulse Resp BP Pulse Ox 09/22/24 04:00 98.3 F 75 16 110/62 09/22/24 00:00 98.3 F 75 16 111/68 98 09/21/24 20:00 97.9 F 95 16 115/68 97 09/21/24 15:20 97.8 F 59 L 15 110/74 99 09/21/24 15:05 59 L 15 134/77 99 09/21/24 14:50 58 L 15 117/78 99 09/21/24 14:35 59 L 15 131/57 98 09/21/24 14:20 57 L 15 128/78 97 09/21/24 14:05 59 L 15 119/61 96 09/21/24 13:50 56 L 15 119/75 98 09/21/24 13:35 67 15 110/56 98 09/21/24 13:20 96.6 F L 63 15 112/52 99 09/21/24 10:18 97.5 F L 70 16 110/67 99 Intake and Output 09/21/24 09/22/24 09/22/24 22:59 06:59 14:59 Output Total 2007 1200 Balance -2007 Output: Urine 1900 1200 Uretheral (Ferrara) 600 Output, Quantitative 108 Blood Loss Other: Voiding Method Indwelling Catheter # Voids 0 - Exam Extremities: Present: normal Abdomen: Present: normal appearance, soft. Absent: distention, tenderness Incision: Present: normal, dry, intact Uterus: Present: normal, firm (The uterine fundus is tonic and minimally tender below the umbilicus.) - Labs Labs: Abnormal Lab Results - Last 24 Hours (Table) 09/21/24 09/22/24 Range/Units 10:30 06:08 WBC 11.60 H (4.50-10.00) 10*3/uL RBC 3.64 L 3.39 L (4.10-5.20) 10*6/uL Hgb 11.0 L 10.4 L (12.0-15.0) g/dL Hct 32.5 L 30.7 L (37.2-46.3) % Immature Gran # 0.05 H (0.00-0.04) 10*3/uL Neutrophils # 8.80 H (1.80-7.70) 10*3/uL Eosinophils # 0.02 L (0.04-0.35) 10*3/uL Immature Plt Fraction 8.1 H (1.1-6.1) % Assessment and Plan (1) Mass of right ovary Current Visit: Yes Status: Acute Code(s): N83.8 - OTH NONINFLAMMATORY DISORD OF OVARY, FALLOP AND BROAD LIGMT SNOMED Code(s): 12259099358360984 (2) Family planning Current Visit: Yes Status: Acute Code(s): Z30.09 - ENCOUNTER FOR OT GENERAL CNSL AND ADVICE ON CONTRACEPTION SNOMED Code(s): 670794136 (3) Previous section Current Visit: Yes Status: Acute Code(s): Z98.891 - HISTORY OF UTERINE SCAR FROM PREVIOUS SURGERY SNOMED Code(s): 081572104 (4) Term Current Visit: Yes Status: Acute Code(s): Z34.90 - ENCNTR FOR SUPRVSN OF NORMAL , UNSP, UNSP TRIMESTER SNOMED Code(s): 06868405 (5) S/P section Current Visit: Yes Status: Acute Code(s): Z98.891 - HISTORY OF UTERINE SCAR FROM PREVIOUS SURGERY SNOMED Code(s): 773819348 Plan: Continue routine and postoperative care. I have encouraged the patient ambulate in the hallways routinely. I would anticipate discharge home tomorrow pending no complications.
[2024-09-22] MEDS: IBUPROFEN 800 MG TAB PO SCH (10:13)
[2024-09-23 08:39] VITALS: BP 109/60; PULSE 71; RESP 14; TEMP 98.6
--- NOTE | 2024-09-23 08:57 | P.DS ---
Providers Date of admission: 09/21/24 09:53 Expected date of discharge: 09/23/24 Attending physician: Satnam Johnston Primary care physician: Stated None - Discharge Diagnosis(es) (1) Mass of right ovary Current Visit: Yes Status: Acute (2) Family planning Current Visit: Yes Status: Acute (3) Previous section Current Visit: Yes Status: Acute (4) Term Current Visit: Yes Status: Acute (5) S/P section Current Visit: Yes Status: Acute Hospital Course: The patient is a 24-year-old 3 para 1-0-1-1 admitted at 39 and 1 sevenths weeks by good dating parameters. She is admitted for repeat low- transverse section with intraoperative bilateral salpingectomy. She also has a known roughly 15 cm right ovarian cyst which has grown over the course of the having been approximately 5 cm in her previous . The intention is to remove this as well. Her was otherwise uncomplicated though she did have a dysrhythmia detected at 1 visit for which she had a maternal- medicine consultation and no further interventions were necessary nor was there any further problems. Group B strep status is negative. On labor delivery, all signs are reassuring with a category 1 heart rate tracing. She was taken to the operating room where she was delivered by repeat low-transverse section of a viable 8 pound 15 ounce baby girl with Apgars of 9 at 1 minute and 10 at 5 minutes. The right ovary was removed entirely without complications and sent for pathological diagnoses and is pending at this time. The patient's and postoperative course has been unremarkable with vital signs were stable and her temperature was afebrile throughout. She was deemed stable for discharge on and postoperative day #2. She was discharged home to follow-up in the office in 2 weeks for an incision check in 6 weeks routinely. Discharge instructions included calling for any significantly increased bleeding or foul-smelling lochia, significantly creased fever abdominal pain, perineal complaints, breast complaints, incisional complaints, or anything else that concerned her. She was additionally instructed to have nothing in the vagina for at least 6 weeks time to include intercourse. She was instructed to do no driving until off of all pain medications or 2 weeks time, whichever came first. She understood her instructions and agrees to follow-up as noted above. Discharge medications included continued vitamins as she has opted to breast-feed. She was otherwise to use [id number] analgesic pain medications as needed. She was provided a prescription for oxycodone 5 mg, 1-2 p.o. every 6 hours as needed pain, #20 dispensed with no refills. Maternal blood type is A+ and rubella status is immune. Discharge hemoglobin and hematocrit were 10.4 and 30.7 respectively. Procedures: #1. Repeat low-transverse section #2. Intraoperative bilateral salpingectomy #3. Right oophorectomy Patient Condition at Discharge: Stable Plan - Discharge Summary New Discharge Prescriptions: No Action RX: Vit No.179/Iron/Folic [ Tablet] 1 tab PO DAILY Discharge Medication List RX: Vit No.179/Iron/Folic [ Tablet] 1 tab PO DAILY 09/17/22 [History] Follow up Appointment(s)/Referral(s): Satnam Johnston MD [STAFF PHYSICIAN] - 10/05/24 2:15 pm (Post Appointment 11-02-2024 at 1:15 p.m.) Discharge Disposition: HOME SELF-CARE
== END 2024-09-23 13:25 | disposition home or self-care (01) | DRG 539 ==
LOC: 4FBP 09:53
PROVIDERS: ADMIT Obstetrics & Gynecology; ATTEND Obstetrics & Gynecology
PROC: 0UT00ZZ Resection of Right Ovary, Open Approach (ICD-10-PCS; 2024-09-21)
PROC: 0UB70ZZ Excision of Bilateral Fallopian Tubes, Open Approach (ICD-10-PCS; 2024-09-21)
PROC: 10D00Z1 Extraction of Products of Conception, Low, Open Approach (ICD-10-PCS; principal; 2024-09-21 12:00)
DX: O34.211 Maternal care for low transverse scar from previous cesarean delivery (principal); Z30.2 Encounter for sterilization; Z37.0 Single live birth; O34.83 Maternal care for other abnormalities of pelvic organs, third trimester; D27.0 Benign neoplasm of right ovary; Z3A.39 39 weeks gestation of pregnancy
CPT/HCPCS: 85025; 86850; 86900; 86901